=== PATIENT | male | born 1995 | race Caucasian/White ===

== ENCOUNTER 2017-05-27 08:24 | Emergency (ER) | payer SELFPAY ==
[2017-05-27] MEDS ORDERED: Lidocaine 1% 5ml(IM or SUTURE)(PAIN CLINIC) ONE (08:25)
[2017-05-27] MEDS: Lidocaine 1% 5ml(IM or SUTURE)(PAIN CLINIC) IJ ONE (08:30)
[2017-05-27] MEDS: DIPH,PERTUSS(ACELL),TET VAC/PF 0.5 ML DISP.SYRIN IM ONE (09:00)
--- NOTE | 2017-05-27 09:04 | ED Physician Documentation ---
General Adult - HISTORIAN Historian: patient, parent - HPI Stated Complaint: Laceration to Right Forearm Chief Complaint: General Adult Onset: minutes Timing: still present Severity: moderate Further Comments: yes (Pt is a 22 yo male with a laceration to his R forearm, after falling down a hill onto a piece of glass where he was camping. Tetanus is not utd.) - ROS CONST: no problems EYES/ENT: none CVS/RESP: none GI/: none MS/SKIN/LYMPH: other (Laceration R forearm) - PAST HX Past History: other (Crohn's disease, bipolar d/o, anxiety) Allergies/Adverse Reactions: Allergies Allergy/AdvReac Type Severity Reaction Status Date / Time clonidine Allergy Verified 05/27/17 08:40 erythromycin base Allergy Verified 05/27/17 08:40 Penicillins Allergy Verified 05/27/17 08:40 topiramate [From Topamax] Allergy Verified 05/27/17 08:40 Home Medications: Ambulatory Orders Medication Instructions Recorded Sulfamethoxazole/Trimethoprim 1 each PO Q12H #14 tablet 05/27/17 [Bactrim Ds] - SOCIAL HX Smoking History: cigarettes Alcohol Use: occasionally - FAMILY HX Family History: No - VITAL SIGNS Vital Signs: Vital Signs Temp Pulse Resp BP Pulse Ox 97 F L 68 18 101/58 99 05/27/17 08:25 05/27/17 08:25 05/27/17 08:25 05/27/17 08:25 05/27/17 08:25 - REVIEWED ASSESSMENTS Nursing Assessment Reviewed: Yes Vitals Reviewed: Yes Procedures Wound Location: upper extremity (R forearm) Wound's Depth, Shape: linear Wound Explored: no foreign body removed Irrigated w/ Saline (ccs): 15 Betadine Prep?: Yes Anesthesia: 1% Lidocaine Wound Debrided: minimal Wound Repaired With: sutures Suture Size/Type: 4:0, nylon Number of Sutures: 7 Progress - Progress Progress: Tdap 0.5 ml IM Rx Bactrim DS. Take one by mouth every 12 hrs for 7 days. May apply topical antibiotic such as Neosporin, Bacitracin or Triple Antibiotic to sutured area twice daily for 7 days. Follow up with primary care provider in 6 or 7 days for suture removal. ED Results Lab/Radiology - Orders Orders: ED Orders Category Date Time Status Diph,Pertuss(Acell),Tet Vac/Pf [Adacel] Med 05/27/17 08:31 Once 0.5 ml IM .ONCE ONE Lidocaine 1% 5ml(IM or SUTURE) [Xylocaine] Med 05/27/17 08:25 Discontinued 100 mg .ROUTE .STK-MED ONE Lidocaine 1% 5ml(IM or SUTURE) [Xylocaine] Med 05/27/17 08:30 Discontinued 100 mg IJ NOW ONE General Adult Physical Exam - PHYSICAL EXAM GENERAL APPEARANCE: mild distress NECK: normal inspection, supple RESPIRATORY: no resp distress, chest non-tender, breath sounds normal CVS: reg rate & rhythm, heart sounds normal BACK: normal inspection, no CVA tenderness SKIN: other (laceration R forearm, 4 cm) EXTREMITIES: normal range of motion NEURO: oriented X3, motor nml, sensation nml Discharge Clincal Impression: Laceration Prescriptions: Sulfamethoxazole/Trimethoprim [Bactrim Ds] 1 each PO Q12H #14 tablet Referrals: Primary Doctor,No [Primary Care Provider] - Home Medications: Ambulatory Orders Sulfamethoxazole/Trimethoprim [Bactrim Ds] 1 each PO Q12H #14 tablet 05/27/17 Condition: Good Disposition: 01 HOME, SELF-CARE Decision to Admit: NO Decision Time: 09:06
[2017-05-27 09:12] VITALS: BP 108/62
== END 2017-05-27 09:10 | disposition home or self-care (01) ==
LOC: ED 08:24
DX: S51.811A Laceration without foreign body of right forearm, initial encounter (principal); X58.XXXA Exposure to other specified factors, initial encounter; Y93.9 Activity, unspecified; Y99.9 Unspecified external cause status
CPT/HCPCS: 12002; 90471; 90715; 99283